=== PATIENT | female | born 1965 | race African-American/Black ===

== ENCOUNTER 2018-07-25 09:58 | Emergency (ER) | payer BC, OTHER ==
[~2018-07-25] VITALS: Ht 162.6 cm; Wt 111.1 kg
[2018-07-25] MEDS ORDERED: FOLBIC RF TABL1 EACH PO (10:24)
[2018-07-25 11:04] LABS: URINE BILIRUBIN NEGATIVE (Negative); URINE BLOOD NEGATIVE (Negative); URINE CLARITY CLEAR; URINE COLOR YELLOW; URINE GLUCOSE-RANDOM* NEGATIVE (Negative); URINE KETONES NEGATIVE (Negative); URINE NITRITE-REFLEX NEGATIVE (Negative); URINE PROTEIN (DIPSTICK) NEGATIVE (Negative); URINE UROBILINOGEN 0.2 E.U./dl (0.2-1.0)
[2018-07-25 11:14] LABS: URINE LEUKOCYTES-REFLEX TRACE (Negative)
[2018-07-25] MEDS ORDERED: MEDROL DOSPAK21 TA1 PO (11:14)
[2018-07-25] MEDS ORDERED: MOBIC7.5 MG PO (11:14)
[2018-07-25] MEDS ORDERED: CYCLOBENZAPRINE5 MG PO (11:14)
[2018-07-25 11:29] VITALS: BP 168/72
== END 2018-07-25 11:30 | disposition home or self-care (01) ==
LOC: ER 09:58
PROVIDERS: Physician Assistant
DX: M51.27 Other intervertebral disc displacement, lumbosacral region (principal); Z98.890 Other specified postprocedural states; Z91.041 Radiographic dye allergy status; Z88.0 Allergy status to penicillin

== ENCOUNTER 2018-09-05 22:49 | Emergency (ER) | payer BC, OTHER ==
[~2018-09-05] VITALS: Ht 157.5 cm; Wt 108.9 kg
[~2018-09-05 22:49] MED LIST: CYCLOBENZAPRINE5 MG PO; FOLBIC RF TABL1 EACH PO; MEDROL DOSPAK21 TA1 PO; MOBIC7.5 MG PO
[2018-09-05 23:26] LABS: ABSOLUTE NEUTROPHILS 5.1 thou/uL (1.4-8.2); BASOPHILS 0.7 % (0.0-2.0); EOSINOPHILS 1.3 % (0.0-3.0); HEMATOCRIT 39.6 % (37.0-47.0); HEMOGLOBIN 13.4 gm/dL (12.0-15.0); LYMPHOCYTES 22.4 % (24.0-44.0); MCH 27.4 pg (26.0-34.0); MCHC 33.7 g/dL (28.0-37.0); MCV 81.3 fL (80.0-100.0); MONOCYTES 5.7 % (1.0-8.0); PLATELET COUNT 233 thou/uL (150-400); POLYS 69.9 % (36.0-66.0); RBC 4.87 mil/uL (4.20-5.00); RDW 14.4 % (10.5-14.5); WBC 7.4 thou/uL (4.0-11.0)
[2018-09-05 23:29] LABS: CALCIUM 9.2 mg/dL (8.5-10.1); POTASSIUM 3.3 mmol/L (3.5-5.1)
[2018-09-05 23:35] LABS: ALBUMIN 3.6 g/dL (3.4-5.0); TOTAL BILIRUBIN 0.6 mg/dL (<0.1-1.0); TOTAL PROTEIN 7.2 g/dL (6.4-8.2)
[2018-09-06 01:13] LABS: URINE BILIRUBIN NEGATIVE (Negative); URINE BLOOD NEGATIVE (Negative); URINE CLARITY CLEAR; URINE COLOR YELLOW; URINE GLUCOSE-RANDOM* NEGATIVE (Negative); URINE KETONES NEGATIVE (Negative); URINE LEUKOCYTES-REFLEX NEGATIVE (Negative); URINE NITRITE-REFLEX NEGATIVE (Negative); URINE PROTEIN (DIPSTICK) NEGATIVE (Negative); URINE SPECIFIC GRAVITY 1.015 (1.005-1.035); URINE UROBILINOGEN 0.2 E.U./dl (0.2-1.0)
[2018-09-06] MEDS ORDERED: TRAMADOL 50 MG50 MG PO (02:02)
[2018-09-06] MEDS ORDERED: ZOFRAN ODT4 MG PO (02:02)
[2018-09-06] MEDS ORDERED: PROTONIX40 M1 PO (02:02)
[2018-09-06 02:30] VITALS: BP 110/54
== END 2018-09-06 02:30 | disposition home or self-care (01) ==
LOC: ER 22:49
PROVIDERS: Emergency Medicine
DX: R10.11 Right upper quadrant pain (principal); R10.13 Epigastric pain; R11.2 Nausea with vomiting, unspecified; Z98.890 Other specified postprocedural states; Z88.0 Allergy status to penicillin; Z91.041 Radiographic dye allergy status

== ENCOUNTER 2021-02-26 15:46 | Inpatient (IN) | payer BC ==
[~2021-02-26] VITALS: Ht 157.5 cm; Wt 95.3 kg
--- NOTE | ~2021-02-26 | O ---
[facility] [place] [address] OPERATIVE REPORT Name: SHAKILA RAMOS Room #: 437-P ADM IN M.R.#: [id number] Admission: 02/26/21 Attend Phys: Demetrio Borja MD Discharge: Date of : 69 Report #: [id number] THIS REPORT FOR: cc: [facility] - Clinic physician unknown [facility] - Clinic physician unknown Jordy Chau MD ~ DATE OF SERVICE: 02/28/2021 PREOPERATIVE DIAGNOSIS: Cholelithiasis. POSTOPERATIVE DIAGNOSIS: Cholelithiasis. OPERATION: Laparoscopic cholecystectomy. SURGEON: Jordy Chau MD ANESTHESIA: General. ESTIMATED BLOOD LOSS: Minimal. SPECIMEN: Gallbladder. DESCRIPTION OF PROCEDURE: After informed consent was obtained, the patient was brought to the operating room and placed supine. SCDs were placed and working, preoperative antibiotics were administered, general anesthesia was induced. The abdomen was prepped and draped in the usual sterile fashion. A 10 mm incision was made at the umbilicus. Fascia was incised and a trocar was placed. Pneumoperitoneum was established. Three right upper quadrant 5 mm ports were placed. Gallbladder was grasped at the fundus and retracted cephalad. Infundibulum was grasped and retracted laterally. I dissected out the cystic duct and the cystic artery as well as the cystic plate. Cystic duct and artery were clipped and ligated leaving 2 clips on the remaining duct and 1 on the remaining artery. Gallbladder was then taken off the liver bed with electrocautery. It was placed into an Endopouch and removed. Fascia was then closed with a [id number] 0 Vicryl. Skin was closed with 4-0 Monocryl. Incisions were dressed with Steri-Strips. COMPLICATIONS: None. DISPOSITION: The patient was taken to recovery in satisfactory condition. By: [id number] Jordy Chau MD /nt
--- NOTE | ~2021-02-26 | P ---
[facility] [place] [address] PROCEDURE REPORT Name: SHAKILA RAMOS Room #: 449-I ADM IN M.R.#: [id number] Admission: 02/26/21 Attend Phys: Demetrio Borja MD Discharge: Date of : 69 Report #: [id number] THIS REPORT FOR: cc: [facility] - Clinic physician unknown [facility] - Clinic physician unknown Gonzalo Beck MD ~ cc: Austin Colvin MD, Shyam Felix MD DATE OF SERVICE: 02/27/2021 PROCEDURE PERFORMED: ERCP with sphincterotomy and balloon sweeps. HISTORY OF PRESENT ILLNESS: The patient is a 55-year-old female who was admitted with increasing abdominal pain, was noted to have elevated liver function test on admission, initially underwent an ultrasound of the abdomen yesterday that showed numerous gallstones within the gallbladder consistent with cholelithiasis. There was probed tenderness, no gallbladder wall edema was noted. Moderate dilation of the common bile duct of 9 mm. No shadowing calculus was evident. Her admit white blood cell count was 7.6. Her admit total bilirubin was 3.1. Her bilirubin is increased to 4.2 today, her white count remains normal at 6.8 and she has been on IV antibiotics since admission. She did have a fever, T-max of 38.8 last night. She has been afebrile this morning today. We proceeded with an MRCP today, which showed numerous gallstones within the gallbladder again, extrahepatic common bile duct dilation measuring up to 10 mm. Pancreatic duct dilated measuring up to 6 mm; filling defect in the distal common bile duct, likely represents choledocholithiasis and there is most likely a distal common bile duct and pancreatic duct obstruction secondary to choledocholithiasis. No pancreatic head masses were noted. We discussed therefore proceeding with an ERCP today. The patient was out of network. We attempted to transfer the patient to a different facility, did not appear she was able to have an ERCP in the near future, and we felt it was needed to proceed at this time in case of a possible cholangitis. DESCRIPTION OF PROCEDURE: The risks and benefits of the procedure were explained to the patient, those risks including but not limited to bleeding, perforation and the risk of sedation as well as potential risk for post-ERCP pancreatitis. She understood these risks and gave informed consent. The procedure was performed in the operating room under general anesthesia, the patient is already on IV Rocephin at this time. Next, using a standard Olympus side-viewing ERCP scope, the scope was placed in the patient's mouth and advanced under direct vision through the esophagus, stomach and into the second portion, at which point a large duodenal diverticulum was noted. The major papilla was not initially easily identified; however, I was able to eventually find the papilla within the diverticulum. Next, using a Tyron-Cook 0.025 dome-tipped sphincterotome catheter. Initially, the pancreatic duct was cannulated, which was noted to be dilated diffusely. Next, with some [facility] [address] [place] [address] PROCEDURE REPORT Name: SHAKILA RAMOS MILLICENT Room #: 449-I ADM IN M.R.#: [id number] Admission: 02/26/21 Attend Phys: Demetrio Borja MD Discharge: Date of : 69 Report #: [id number] manipulation, I was able to advance the sphincterotome into the common bile duct. A cholangiogram was obtained. There were no obvious filling defects noted. Intrahepatic ducts appeared normal. The cystic duct did fill; the common bile duct was dilated to approximately 10 mm. At this point, a guidewire was advanced into the intrahepatic ducts and a large sphincterotomy was performed. After the sphincterotomy was performed, a small amount of purulent type material and debris was removed. At this point, good bile drainage was noted after sphincterotomy. At this point, the sphincterotome was removed and a balloon catheter was advanced over the guidewire and multiple balloon sweeps were performed. No obvious stones were seen. Again, a small amount of debris was removed. A balloon occlusion cholangiogram was then done; however bubbles from the sphincterotomy were noted within the common bile duct; again several balloon sweeps were performed and no stones were removed; however debris was removed. At this point, the wire and a balloon catheter were removed. The scope was then withdrawn and the procedure terminated. The patient tolerated the procedure well. IMPRESSION: 1. No obvious filling defect within the common bile duct on initial cholangiogram. However, after large sphincterotomy debris with some purulent type material was removed and good bile drainage was noted. 2. The patient with a large duodenal diverticulum near the papilla. This may have given the appearance of a stone on MRCP today as well. 3. Dilated common bile duct and pancreatic duct. RECOMMENDATIONS: 1. Observe the patient post-procedure. 2. Continue to monitor liver function tests. 3. Continue antibiotics. 4. I would recommend proceeding with a laparoscopic cholecystectomy in the near future. Thank you for allowing me to participate in her care. By: [id number] Gonzalo Bcek MD /nt
[~2021-02-26 15:46] MED LIST changes: +PROTONIX40 M1 PO; +TRAMADOL 50 MG50 MG PO; +ZOFRAN ODT4 MG PO
[2021-02-26 15:51] VITALS: BP 139/76
[2021-02-26 17:56] LABS: ABSOLUTE NEUTROPHILS 6.9 thou/uL (1.4-8.2); BASOPHILS 0.2 % (0.0-2.0); EOSINOPHILS 0.1 % (0.0-3.0); HEMATOCRIT 41.5 % (37.0-47.0); HEMOGLOBIN 13.6 gm/dL (12.0-15.0); MCH 27.3 pg (26.0-34.0); MCHC 32.8 g/dL (28.0-37.0); MCV 83.3 fL (80.0-100.0); PLATELET COUNT 215 thou/uL (150-400); POLYS 90.7 % (36.0-66.0); RBC 4.98 mil/uL (4.20-5.00); WBC 7.6 thou/uL (4.0-11.0)
[2021-02-26 18:04] LABS: CALCIUM 10.2 mg/dL (8.5-10.1); POTASSIUM 4.1 mmol/L (3.5-5.1)
[2021-02-26 18:10] LABS: TOTAL BILIRUBIN 3.1 mg/dL (0.2-1.0); TOTAL PROTEIN 7.6 g/dL (6.4-8.2)
[2021-02-26 21:58] VITALS: BP 132/60
[2021-02-26 22:07] VITALS: BP 132/60
[2021-02-26 22:30] VITALS: BP 134/65
[2021-02-26 23:30] VITALS: BP 145/75
--- NOTE | 2021-02-27 02:15 | NUR ---
PT ADMITTED TO THE UNIT WITH C/O ABDOMINAL PAIN ESPECIALLY ON THE UPPER QUADRANT.PT ASLO VOMITED X1 AND DENIED N/D.PT IS A/O X4.PT HAS HIGH TEMP OF 101.3 AT ADMISSION AND ONE TYLENOL GIVEN WITH RELIEF.PT PAIN MANAGED WITH MORPHINE.PT NPO FROM MIDNIGHT.PT SKIN INTACT WITH NO SKIN ISSUES.WILL CONTINUE TO MONITOR TO MONITOR
[2021-02-27 02:36] LABS: HEMATOCRIT 36.8 % (37.0-47.0); HEMOGLOBIN 12.2 gm/dL (12.0-15.0); MCH 27.5 pg (26.0-34.0); MCHC 33.2 g/dL (28.0-37.0); RBC 4.44 mil/uL (4.20-5.00); RDW 14.1 % (10.5-14.5); WBC 6.8 thou/uL (4.0-11.0)
[2021-02-27 02:38] LABS: CALCIUM 8.8 mg/dL (8.5-10.1); POTASSIUM 4.3 mmol/L (3.5-5.1)
[2021-02-27 02:47] LABS: INR 1.03; PROTIME 11.2 Seconds (10.5-12.1)
[2021-02-27 04:00] VITALS: BP 133/72
[2021-02-27 07:05] VITALS: BP 134/84
[2021-02-27 10:02] LABS: ALBUMIN 3.4 g/dL (3.4-5.0); DIRECT BILIRUBIN 2.1 mg/dL (<0.1-0.2); TOTAL BILIRUBIN 4.2 mg/dL (0.2-1.0); TOTAL PROTEIN 6.8 g/dL (6.4-8.2)
[2021-02-27 14:27] VITALS: BP 144/84
--- NOTE | 2021-02-27 14:35 | NUR ---
Pt is a 55 y/o female, at the bed side in for cholelithiasis. Pt was groggy when CM role was introduced. Most if not all questions were answered by the Mike Mccormick [phone]. Couple lives in an apartment with children. Pt has completed COVID vaccine ([employer]) though stated he has not had his. Pt does not recall the name of her PCP but goes to [facility] for check ups. They have not use any home health or rehab in the past. stated they may be leaving over the weekened after surgery. Informed pt and of CM role and will be following this case for any dc needs.
--- NOTE | 2021-02-27 16:28 | NUR ---
ASSUMED CARE OF PATIENT AT SHIFT CHANGE. ASSESSMENT CHARTED. MEDICATIONS ADMINISTERED PER EMAR. VSS; PATIENT REMAINS AFEBRILE THIS SHIFT. PATIENT HAD MRI DONE SHOWING GALLSTONES AND WAS SCHEDULED FOR AN ERCP AT 1600. COVID NOW TEST COMPLETE AND NEGATIVE. OR TEAM CAME TO GET PATIENT HOWEVER PATIENT WAS JUST INFORMED OF BEING OUT OF NETWORK AND POSSIBLE TRANSFER TO [facility]. PATIENT REMAINS NPO; GI MARGARINE CHURN OPERATOR CALLED FOR UPDATE AND WAS UPDATED ON SITUATION. PATIENT REMAINS IN PAIN AT LEAST 7/10 THROUGOUT SHIFT BRIEFLY RELIEVED BY MORPHINE. ALL TESTS AND PROCEDURES ON HOLD FOR TRANSFER. AWAITING ORDERS/UPDATES
--- NOTE | 2021-02-27 18:27 | NUR ---
PATIENT WAS TOLD BY GI THAT SHE SHOULD GET THE PROCEDURE DONE. PROVIDER WAS PAGED; PATIENT WAS TOLD THAT THE OR TEAM WOULD COME GET HER AT 1800 BUT THEY HAVE NOT BEEN SEEN. PRE OP WAS CALLED BUT NO ONE WAS ABLE TO BE REACHED. WILL ENDORSE TO NOC RN
--- NOTE | 2021-02-27 18:35 | NUR ---
PATIENT WAS TAKEN DOWN TO GI/OR FROM MANAGER UNIX FROM GI. SENT DOWN WITH SCD'S. SPOUSE AT [facility].
[2021-02-27 19:15] VITALS: BP 166/82
[2021-02-27 20:52] VITALS: BP 151/84
[2021-02-27 21:17] VITALS: BP 140/70
[2021-02-28] VITALS (7 sets, daily range): BP systolic 132–165; BP diastolic 64–82
--- NOTE | 2021-02-28 04:42 | NUR ---
PATIENT WAS BACK FROM OR TO THE UNIT AT AROUND 2029. WAS AT BEDSIDE AT THIS TIME.PATIENT HAS BEEN NPO SINCE MIDNIGHT.PAIN CONTROLLED THIS SHIFT.PATIENT USES BEDSIDE COMMODE. FALL PRECAUTION IN PLACE. PATIENT IN BED ASLEEP AT THIS TIME BREATHING REGULAR AND UNLABOURED.
[2021-02-28 07:21] LABS: DIRECT BILIRUBIN 1.2 mg/dL (<0.1-0.2); TOTAL BILIRUBIN 2.3 mg/dL (0.2-1.0); TOTAL PROTEIN 6.9 g/dL (6.4-8.2)
--- NOTE | 2021-02-28 18:31 | NUR ---
ASSUMED CARE OF PATIENT AT SHIFT CHANGE. ASSESSMENT CHARTED. MEDICATIONS ADMINISTERED PER EMAR. VSS; BP SLIGHTLY ELEVATED RELATED TO PAIN. PATIENT STILL C/O PAIN FROM 710 TO 1010; PARTIALLY RELIEVED BY PRN MEDICATION ON EMAR. PATIENT WENT DOWN TO OR FOR A LAP ROCKY AT APPROX. 1130; RETURNED AT APPROX 1515. POST OP VITALS WERE STABLE BUT PATIENT C/O BREAKTHROUGH PAIN. PROVIDER NOTIFIED; PATIENT STARTED ON PECOCET AND EXPRESSED PAIN RELIEF. PATIENT ON A REGULAR DIET POSTOP BUT CHOSE TO EAT ONLY SOFT FOODS IN SMALL AMOUNTS. DENIES NAUSEA/VOMITING. PATIENT WILL TRANSFER TO AT SHIFT CHANGE. PATIENT AD [place] PRIOR TO SX BUT NOW EDUCATED TO CALL WHEN NEEDING TO GET UP. WILL ENDORSE TO ONCOMING NURSE
[2021-02-28 22:07] LABS: URINE BILIRUBIN NEGATIVE (Negative); URINE BLOOD NEGATIVE (Negative); URINE CLARITY CLEAR; URINE COLOR YELLOW; URINE GLUCOSE-RANDOM* NEGATIVE (Negative); URINE KETONES 1+ (Negative); URINE LEUKOCYTES-REFLEX NEGATIVE (Negative); URINE PROTEIN (DIPSTICK) NEGATIVE (Negative); URINE SPECIFIC GRAVITY >= 1.030 (1.005-1.035); URINE UROBILINOGEN 0.2 E.U./dl (0.2-1.0)
[2021-02-28 22:08] LABS: URINE NITRITE-REFLEX POSITIVE (Negative)
[2021-02-28 22:15] LABS: SQUAMOUS 4-10 Moderate /LPF (0-3)
[2021-02-28 22:16] LABS: BACTERIA-REFLEX None Seen /HPF (None Seen); CASTS None Seen /LPF (None Seen); CRYSTALS None Seen /LPF (None Seen); URINE RBC None Seen /HPF (NONE SEEN); URINE WBC-REFLEX 0-5 Rare /HPF (0-5)
--- NOTE | 2021-03-01 02:02 | NUR ---
PT TRANSFERRED FROM [facility] AT SHIFT CHANGE.A&OX4. IV INTACT AND FLUIDS INFUSING. OXYCODONE GIVEN FOR ABD PAIN 02/07. PT UP WITH ASSISTX1 TO THE BSC. FALL PREC IN PLACE. SCD'S INTACT. GAY LIQUID DIET. DENIES N/. C/O SLIGHT DIZZINESS ON ARRIVAL. ENCOURAGED PO SNACK JELLO PROVIDED. WILL CONT TO MONITOR.
[2021-03-01 04:14] VITALS: BP 161/73
[2021-03-01 08:06] VITALS: BP 144/67
[2021-03-01] MEDS ORDERED: PERCOCET 10-321 EACH PO (09:45)
[2021-03-01 12:27] LABS: HEMATOCRIT 35.5 % (37.0-47.0); HEMOGLOBIN 11.7 gm/dL (12.0-15.0); MCH 27.6 pg (26.0-34.0); MCV 83.7 fL (80.0-100.0); RBC 4.24 mil/uL (4.20-5.00); RDW 14.1 % (10.5-14.5); WBC 6.9 thou/uL (4.0-11.0)
[2021-03-01 12:50] LABS: CALCIUM 8.7 mg/dL (8.5-10.1); POTASSIUM 3.7 mmol/L (3.5-5.1); TOTAL BILIRUBIN 1.1 mg/dL (0.2-1.0); TOTAL PROTEIN 6.6 g/dL (6.4-8.2)
--- NOTE | 2021-03-01 14:01 | NUR ---
PT ASSESSED AT START OF SHIFT. DR. TORRES IN EARLY. PT AMBULATED THE HALLS SEVERAL LAPS AND BELCHED AND PASSED SOME FLATUS. SIPPED SOME WATER AND TRIED CHICKEN BROTH BUT BECAME NAUSEATED W/ SOME VOMITING. IV ZOFRAN GIVEN W/ SOME PAIN MED FOR ABD PAIN AFTER WRETCHING. FEELING SOME BETTER NOW. DISCHARGE CANCELLED FOR TODAY.
[2021-03-01 15:25] VITALS: BP 127/62
--- NOTE | 2021-03-01 16:55 | NUR ---
PT SLEPT FOR A WHILE AND STATING SHE'S FEELIMG MUCH BETTER. WILL TRY SOME CLEAR BROTH FOR DINNER.
[2021-03-01 20:10] VITALS: BP 149/84
--- NOTE | 2021-03-02 03:18 | NUR ---
ASSESSED AT START OF SHIFT. PT RESTING IN BED RATES PAIN 8/10 PO OXYCODONE GIVEN. IV INTACT AND FLUIDS INFUSING. UP WITH SBA TO THE BATHROM. FALL PREC IN PLACE. DENIES NAUSEA, VOMITING. NO FURTHER SIGNS OF DISCOMFORT. WILL CONT TO MONITOR
[2021-03-02 04:35] VITALS: BP 155/73
[2021-03-02 07:40] VITALS: BP 122/65; BP 128/61
--- NOTE | 2021-03-02 12:36 | NUR ---
ASSUMED PT CARE AT 1040 FROM DAY NURSE. PT IS ALERT & ORIENTED X4. PT HAS IV SITE ON R AC RUNNING NS @126ML. PT HAS 4 LAP SITE WITH STERI STRIPS CLEAN AND INTACT. NOTED ABDOMINAL BLOATING. PT STATED THAT PT HAS BEEN WALKING THE HALLWAY. NO C/O OF NAUSEA AND VOMITING. PT IS ON ROOM AIR. PT IS UP WITH ASSIST X1 TO THE BATHROOM. PT AT THE BEDSIDE. PT ON THE CHAIR. WILL CONTINUE TO MONITOR PT. FOLLOW POC.
--- NOTE | 2021-03-02 14:40 | NUR ---
SW reviewed chart and spoke with attending physician. Pt had an ERCP and lap madisyn over the weekend. Pt is on a regular diet. Pt is on IV abx. Plan is for pt to discharge home when medically stable. No discharge needs identified at this time. JESSE is following to assist should needs arise.
[2021-03-02 16:30] VITALS: BP 142/72
[2021-03-02 20:22] VITALS: BP 148/78
[2021-03-03 07:15] VITALS: BP 173/90
--- NOTE | 2021-03-03 07:38 | NUR ---
patient had bowel movement x3. patient ambulates to the bathroom with steady gaits. patient has scds on. patient 4 lap sites are c/d/i covered with steli strip. patient in bed asleep at this time breathing regular and unlaboured.
[2021-03-03 13:48] VITALS: BP 173/90
--- NOTE | 2021-03-03 14:05 | NUR ---
ASSUMED PT CARE THIS AM. EDUCATED PT ABOUT DRINKING FLUIDS AND AMBULATING IN THE HALLWAY. PER DR BRANDEN LANGSTON FOR DC AND INFORMED TO DR ABOUT THAT AND FOLLOW UP WITH HIM. REMOVED IV. PT SIGNED DC FORM. GIVEN PRESCRIPTION PER DR RAMIREZ. PT AT THE BEDSIDE. PT HAD BM LAST NIGHT AND INFORMED DR. PT STATED HAS BEEN PASSING GAS. WILL CONTINUE TO MONITOR PT. FOLLOW POC.
--- NOTE | 2021-03-03 15:05 | NUR ---
ON-GOING ASSESSMENT: CM REVIEWED CHART. PT HAS ORDERS TO DISCHARGE HOME TODAY NO NEEDS.
--- NOTE | 2021-03-04 16:06 | PATH ---
[facility] [address] [place] [address] PATHOLOGY RPT PROCEDURE Name: SHAKILA RAMOS Room #: 437-P [facility] IN M.R.#: [id number] Admission: 02/26/21 Date of : 69 Discharge: 03/03/21 Report #: [id number] Path Case #: [id number] [facility] Accession Number: [id number] . 01 Material submitted: . gallbladder - GALLBLADDER . 01 Clinical history: . LAPARSCOPIC CHOLECTSTECTOMY . 02 Diagnosis: Gallbladder, cholecystectomy: - Mild chronic cholecystitis. - Cholelithiasis. (IUV/db; 03/03/2021) LBQ 03/03/2021 [facility] Local . 02 Electronically signed: . Lizzy Joshua MD, Pathologist NPI- [id number] . 01 Gross description: . Fixative: Formalin Labeled: Gallbladder Specimen received: Intact gallbladder Dimensions: 1.6 x 3.4 x 3.0 cm Serosa: Blue-torres Lymph node: None identified Mucosa: Velvety, bile-stained Average wall thickness: 0.1 cm Calculi: Present, displaying a dark green, nodular appearance Abnormalities: None identified . A1- Bowling Ball Molder body, fundus, and the cystic duct margin. ([facility]; 03/02/2021) NRI/NRI 03/02/2021 1312 Local . 02 Pathologist provided ICD-10: K80.10 . 02 CPT . 038043 Specimen Comment: A courtesy copy of this report has been sent to [phone] Specimen Comment: Report sent to Performed at: [address] [place] [id number] [address] [id number] [address] [address] PATHOLOGY RPT PROCEDURE Name: RICHARDFRANCOLUPIS RICKS Room #: 437-P [facility] IN M.R.#: [id number] Admission: 02/26/21 Date of : 69 Discharge: 03/03/21 Report #: [id number] Path Case #: [id number] MD Weston Bledsoe MD Phone: [phone] Performed at: [address] [id number] MD Lizzy Joshua MD Phone: [phone]
[2021-03-05] MEDS ORDERED: PROTONIX40 M2 PO (11:01)
[2021-03-05] MEDS ORDERED: ZOFRAN ODT4 MG PO (11:01)
== END 2021-03-03 15:31 | disposition home or self-care (01) | DRG 419 ==
LOC: ER 15:46 → EROBS 19:32 → 4W 22:22 → 4S 02-28 19:02
PROVIDERS: Internal Medicine Gastroenterology; Nurse Practitioner Family; Specialist; Student in an Organized Health Care Education/Training Program; ADMIT Hospitalist; ATTEND Hospitalist
PROC: 0F798ZZ Dilation of Common Bile Duct, Via Natural or Artificial Opening Endoscopic (ICD-10-PCS; principal; 2021-02-27)
PROC: 0FT44ZZ Resection of Gallbladder, Percutaneous Endoscopic Approach (ICD-10-PCS; 2021-02-28)
DX: K80.42 Calculus of bile duct with acute cholecystitis without obstruction (principal); K21.9 Gastro-esophageal reflux disease without esophagitis; R74.01 Elevation of levels of liver transaminase levels; E66.9 Obesity, unspecified; M54.30 Sciatica, unspecified side; Z20.822 Contact with and (suspected) exposure to COVID-19; Z88.0 Allergy status to penicillin; Z91.041 Radiographic dye allergy status; Z68.38 Body mass index [BMI] 38.0-38.9, adult; Z79.899 Other long term (current) drug therapy
CPT/HCPCS: 10040; 10195; 50010; 50101; 50411; 50555; 51489; 52265; 52266; 53307; 53312; 53314; 55245; 56462; 56525; 56526; 58574; 62110; 62900; 70005

== ENCOUNTER 2021-04-14 12:04 | Emergency (ER) | payer BC ==
[~2021-04-14] VITALS: Ht 157.5 cm; Wt 104.3 kg
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
[~2021-04-14 12:04] MED LIST changes: +PERCOCET 10-321 EACH PO; +PROTONIX40 M2 PO
[2021-04-14 12:55] LABS: ABSOLUTE NEUTROPHILS 4.1 thou/uL (1.4-8.2); BASOPHILS 0.8 % (0.0-2.0); EOSINOPHILS 1.8 % (0.0-3.0); HEMATOCRIT 38.3 % (37.0-47.0); HEMOGLOBIN 12.5 gm/dL (12.0-15.0); MCH 27.1 pg (26.0-34.0); MCHC 32.6 g/dL (28.0-37.0); PLATELET COUNT 193 thou/uL (150-400); POLYS 69.4 % (36.0-66.0); RBC 4.62 mil/uL (4.20-5.00); RDW 14.5 % (10.5-14.5); WBC 5.9 thou/uL (4.0-11.0)
[2021-04-14 13:14] LABS: CALCIUM 8.7 mg/dL (8.5-10.1); POTASSIUM 3.8 mmol/L (3.5-5.1)
[2021-04-14 13:26] LABS: ALBUMIN 3.7 g/dL (3.4-5.0); TOTAL BILIRUBIN 0.7 mg/dL (0.2-1.0)
[2021-04-14] MEDS ORDERED: DICYCLOMINE HCL20 MG PO (16:27)
[2021-04-14 16:48] VITALS: BP 148/68
--- NOTE | 2021-04-15 09:22 | EKG ---
[address] [address] ELECTROCARDIOGRAM REPORT Name: SHAKILA RAMOS [id number] Admission: 04/14/21 Attend Phys: Discharge: 04/14/21 Date of : 69 Report #: [id number] [facility] ED Test Date: 2021-04-14 Test Time: 12:59:29 Pat Name: SHAKILA RAMOS Department: Room: Gender: F Director Retirement: unknown : 1965 Requested By: Ronak Moscoso Order Number: [id number] MD: Steven Flowers Measurements Intervals Duncan Rate: 61 P: 49 [place]: 170 QRS: 13 QRSD: 90 T: -1 QT: 446 QTc: 450 Interpretive Statements Sinus rhythm Nonspecific T abnormalities, anterior leads No previous ECG available for comparison Electronically Signed On 04-15-2021 9:22:13 CDT by Steven Flowers [email or web address] <ELECTRONICALLY SIGNED> By: Steven Flowers MD, [facility] 04/15/21 0922 [id number] [id number] Steven Flowers MD, FACC /EPI
== END 2021-04-14 16:49 | disposition home or self-care (01) ==
LOC: ER 12:04
PROVIDERS: Nurse Practitioner
DX: K21.9 Gastro-esophageal reflux disease without esophagitis (principal); R07.9 Chest pain, unspecified; Z98.890 Other specified postprocedural states; Z91.09 Other allergy status, other than to drugs and biological substances; Z88.0 Allergy status to penicillin; Z91.041 Radiographic dye allergy status